=== PATIENT | female | born 1985 | race Caucasian/White ===

== ENCOUNTER 2025-06-14 14:19 | Outpatient (CLI) | payer OTHER, SELFPAY | END 2025-06-14 14:20 | disposition home or self-care (01) | PROVIDERS: Visit Provider Obstetrics & Gynecology | DX: R63.5 Abnormal weight gain (principal); Z13.6 Encounter for screening for cardiovascular disorders | CPT/HCPCS: 80061; 84439; 84443 ==

== ENCOUNTER 2025-07-07 09:21 | Outpatient (CLI) | payer OTHER, SELFPAY | END 2025-07-07 09:22 | disposition home or self-care (01) | LOC: FRMREF 09:22 | PROVIDERS: Visit Provider Obstetrics & Gynecology | DX: E03.9 Hypothyroidism, unspecified (principal) | CPT/HCPCS: 84443 ==